=== PATIENT | female | born 2000 | race Caucasian/White ===

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

== ENCOUNTER 2022-02-12 13:55 | Emergency (ER) | payer BC, SELFPAY ==
--- NOTE | ~2022-02-12 | XR_ITS ---
EXAMINATION: XR knee LT min 4V DATE: 02/12/2022 14:27 INDICATION: Left knee injury. TECHNIQUE: 4 views of left knee were obtained. COMPARISON: None. FINDINGS: Bone alignment is normal. No fracture. Joint spaces are well maintained. There is no knee j oint effusion. IMPRESSION: 1. Normal left knee. Reviewed, dictated and finalized at location A. IMPRESSION: 1. Normal left knee.
[2022-02-12 14:05] VITALS: BP 119/65; PULSE 67; RESP 12; TEMP 35.7; O2SAT 100
--- NOTE | 2022-02-12 14:11 | ED.LOWEXIN ---
HPI - Extremity Injury (Lower) General Chief Complaint: Extremity Injury, Lower Stated Complaint: left knee injury Time Seen by Provider: 02/12/22 14:11 Source: patient Mode of arrival: ambulatory Limitations: no limitations History of Present Illness HPI Narrative: 21-year-old female presents with pain to left knee. 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 She states she then walked up several flights of stairs. When she got home she realized that left knee was bruised and swollen. States since then she is having pain when ambulatory. Reports pain while trying to sleep last night. States left knee is throbbing. She is ambulatory with steady gait [facility]. She took Tylenol prior to arrival. Patient would like x-ray to evaluate for fracture. All systems reviewed and negative except as noted above. Related Data Home Medications Medication Instructions Recorded Confirmed escitalopram oxalate 20 mg PO DAILY 11/24/21 02/12/22 trazodone 120 mg PO HS PRN Sleep 11/24/21 dextroamphetamine-amphetamine ER 10 mg PO DAILY 02/12/22 02/12/22 10 mg 24hr capsule,extend release Allergies Allergy/AdvReac Type Severity Reaction Status Date / Time No Known Allergies Allergy Verified 11/24/21 10:13 Review of Systems Review of Systems: CONSTITUTIONAL: Denies fever, chills, or sweats. EYES: Denies visual changes, redness, or discharge. ENT: Denies rhinorrhea, congestion, sore throat, or otalgia. CARDIOVASCULAR: Denies chest pain, palpitations, or edema. RESPIRATORY: Denies cough or dyspnea. GASTROINTESTINAL: Denies abdominal pain, nausea, vomiting, or diarrhea. GENITOURINARY: Denies dysuria or hematuria. SKIN: Denies rash or itching. MUSCULOSKELETAL: Denies back pain, joint pain, or myalgia. Reports bruising and pain to left knee. NEUROLOGIC: Denies headache, numbness, or weakness. PSYCHIATRIC: Denies anxiety or depression. All other systems reviewed are negative, except as documented in HPI. PMFSH Comments At time of signature, agree with nursing past medical, surgical, social and family history. There is no relevant family history pertinent to the presenting complaint. Exam Narrative: GENERAL: This is a well-nourished, well-developed patient, in no apparent distress. HEAD: normocephalic, atraumatic. EYES: PERRL. Sclera clear/white. Vision is grossly intact. EARS: External ears normal NOSE: External nose normal NECK: Neck supple, non-tender without lymphadenopathy, masses or thyromegaly. CARDIOVASCULAR: Regular rate and rhythm without murmurs, gallops, or rubs. RESPIRATORY: Clear to auscultation. Breath sounds equal bilaterally. No wheezes, rales, or rhonchi. SKIN: warm, Dry, intact with no suspicious lesions or rash, good texture and turgor. NEURO: awake, alert, and oriented to person, place and time. There were no obvious focal neurologic abnormalities. EXTREMITIES: Normal range of motion to left knee. There is an approximate 2 cm contusion to anterior aspect left knee with tenderness on palpation. To light Course Course Level of Care: Express Care Visit Vital Signs Vital signs: Vital Signs Temperature 35.7 C L 02/12/22 14:05 Pulse Rate 67 02/12/22 14:05 Respiratory Rate 12 02/12/22 14:05 Blood Pressure 119/65 02/12/22 14:05 Pulse Oximetry 100 02/12/22 14:05 Oxygen Delivery Room Air 02/12/22 14:05 Temperature 35.7 C L 02/12/22 14:05 Pulse Rate 67 02/12/22 14:05 Respiratory Rate 12 02/12/22 14:05 Blood Pressure 119/65 02/12/22 14:05 Pulse Oximetry 100 02/12/22 14:05 Oxygen Delivery Room Air 02/12/22 14:05 Reviewed MDM - Extremity Injury (Lower) MDM Narrative Medical decision making narrative: Patient is aware of diagnosis, understands and agrees to treatment plan. Anticipatory guidance given. Patient agrees to follow-up as directed and is aware of reasons to seek care at the emergency department. P
== END 2022-02-12 14:43 | disposition home or self-care (01) ==
PROVIDERS: Emergency Provider Nurse Practitioner Family
DX: S80.02XA Contusion of left knee, initial encounter (principal); W22.09XA Striking against other stationary object, initial encounter; F90.9 Attention-deficit hyperactivity disorder, unspecified type; F41.9 Anxiety disorder, unspecified; F32.A Depression, unspecified
CPT/HCPCS: 73564; 99213; G0463

== ENCOUNTER 2024-02-19 10:00 | Emergency (ER) | payer OTHER, SELFPAY ==
--- NOTE | 2024-02-19 10:02 | ED.URI ---
HPI - URI/Sore Throat General Chief Complaint: Upper Respiratory Infection Stated Complaint: Congestion/Sore Throat/Nausea Time Seen by Provider: 02/19/24 10:02 Source: patient Mode of arrival: ambulatory Limitations: no limitations History of Present Illness HPI Narrative: Misty is a 23-year-old female patient presenting to the clinic today with complaints of nasal congestion, headache, sore throat, and nausea that started on Tuesday. She reports no known fever. Related Data Home Medications Medication Instructions Recorded Confirmed escitalopram oxalate 20 mg PO DAILY 11/24/21 02/12/22 trazodone 120 mg PO HS PRN Sleep 11/24/21 dextroamphetamine-amphetamine ER 10 mg PO DAILY 02/12/22 02/12/22 10 mg 24hr capsule,extend release Allergies Allergy/AdvReac Type Severity Reaction Status Date / Time No Known Allergies Allergy Verified 11/24/21 10:13 Review of Systems Review of Systems: Pertinent positives per HPI. Patient denies any fever, chills, rash, visual changes, dizziness, cough, shortness of breath, chest pain, palpitations, nausea, vomiting, diarrhea, constipation, abdominal pain, or any urinary issues. PMFSH Comments At the time of my signature, I reviewed and agree with the nursing past medical, surgical, social, and family history. There is no relevant family history pertinent to the patient complaint. Exam Narrative: General: Well-developed, well nourished, in no apparent distress Head: Normocephalic, atraumatic Eyes: Pupils equally round and reactive to light bilaterally, EOM intact, sclera and conjunctive clear, no discharge, lids normal Ears: TMs intact and clear, ear canals clear, no drainage, grossly hearing normal. Nose: Nares patent, clear nasal discharge, no inflammation, no sinus tenderness. Mouth: Oropharynx without lesions or masses, good dentition, MMM. Neck: Supple, trachea midline, no enlargement of anterior or posterior cervical nodes, no thyroid masses or goiter palpable. Cardio: Regular rate and rhythm, s1 and s2 normal, no murmur appreciated. Resp: Clear to auscultation bilaterally anteriorly and posteriorly, no rhonchi, rales, wheezing or rubs Course Course Emergency Course: Portions of this record may have been created with voice recognition software. Level of Care: Express Care Visit Vital Signs Vital signs: Vital signs reviewed MDM - URI/Sore Throat MDM Narrative Medical decision making narrative: At the time of visit patient is resting comfortably on the exam table. Patient appears to be nontoxic. Labs: COVID, influenza, and strep test were performed and were negative in the clinic today. Plan: We will send strep for culture. I suspect patient has URI/pharyngitis/viral syndrome. Prescription for Zofran was sent to the pharmacy as she is reporting some nausea. Supportive measures were discussed with the patient and they voiced understanding discharge instructions and agrees to treatment plan. Return precautions reviewed Differential Diagnosis Differential diagnosis: Likely upper respiratory infection, otitis media, sinusitis, viral infection, bronchitis, influenza, pharyngitis and other (COVID) Discharge Plan Discharge Clinical Impression: Upper respiratory infection, Pharyngitis, Viral infection Patient Disposition: Home, Self-Care Condition: Stable Instructions: Antibiotic Form, Pharyngitis (ED), Viral Syndrome (ED), Cold Symptoms (ED) Additional Instructions: COVID, influenza, and strep test were all negative. We will send strep for culture if this comes back positive we will contact you in place you on antibiotics at that time. Take prescription medications only as prescribed-ondansetron Increase fluids and stay well hydrated Tylenol/motrin for pain/fever Flonase and OTC antihistamines as directed Vicks vapor rub to open sinuses Sinus rinses for congestion Cepacol spray, cough drops, throat lozenges, warm tea with ho
[2024-02-19 10:06] VITALS: BP 118/68; PULSE 77; RESP 16; TEMP 36.5; O2SAT 100
== END 2024-02-19 10:28 | disposition home or self-care (01) ==
PROVIDERS: Emergency Provider Nurse Practitioner Family
DX: J06.9 Acute upper respiratory infection, unspecified (principal); J02.9 Acute pharyngitis, unspecified; B34.9 Viral infection, unspecified; F41.9 Anxiety disorder, unspecified; F32.A Depression, unspecified; F90.9 Attention-deficit hyperactivity disorder, unspecified type
CPT/HCPCS: 87081; 99213; G0463

== ENCOUNTER 2025-06-10 15:05 | Outpatient (CLI) | payer OTHER, SELFPAY ==
--- NOTE | ~2025-06-10 | XR_ITS ---
EXAMINATION: XR chest 2V, 06/10/2025 15:37 CDT HISTORY: Shortness of breath COMPARISON: No comparisons available. Technique: 2 views obtained. Findings: The lungs are clear, no effusion. No pneumothorax. Heart is normal size. Mediastinal and hilar contours are within normal limits. Bony thorax no acute abnormality. Impression: No acute cardiopulmonary abnormality. Reviewed, dictated and finalized at location P. Impression: No acute cardiopulmonary abnormality.
[2025-06-10 15:34] LABS: Hematocrit 37.9 % (37.0-47.0); Hemoglobin 11.6 g/dL (12.0-15.0); Immature Granulocyte Percent A 0.4 % (0-0.5); Lymphocytes Absolute Auto 3.04 K/mm3 (0.9-3.2); Mean Corpuscular HGB Conc 30.6 g/dl (32-36); Mean Corpuscular Hemoglobin 19.9 pg (26-34); Mean Corpuscular Volume 65.1 fl (80-100); Nucleated Red Blood Cells Absolute Auto 0.000 K/mm3 (0.0-0.012); Nucleated Red Blood Cells Perc 0.0 % (0.0-0.2); Platelet Count Result 510 k/mm3 (150-375); Red Blood Count 5.82 M/mm3 (4.2-5.4); White Blood Count 11.3 K/mm3 (4.5-10.0)
[2025-06-10 16:07] LABS: Band Neutrophils Percent 0 % (0-6); Hypochromasia 1+; Microcytosis 1+ (NORMAL); Schistocytes None Seen
[2025-06-10 16:08] LABS: Anisocytosis 2+
[2025-06-10 16:35] LABS: Thyroid Stimulating Hormone Reflex 0.809 uIU/mL (0.465-4.68)
[2025-06-10 16:59] LABS: Alanine Aminotransferase 13 U/L (6-35); Albumin Level 4.4 g/dL (3.5-5.1); Alkaline Phosphatase 77 U/L (38-126); Anion Gap 10 mmol/L (4-12); Aspartate Amino Transferase 23 U/L (14-36); Bilirubin,Total 0.3 mg/dL (0.2-1.3); Blood Urea Nitrogen 11 mg/dL (7-17); Calcium 9.2 mg/dL (8.4-10.2); Carbon Dioxide 23 mmol/L (22-30); Chloride 104 mmol/L (98-107); Estimated Glomerular Filt Rate > 60; Glucose 94 mg/dL (65-110); Potassium 3.9 mmol/L (3.4-5.0); Sodium 137 mmol/L (137-145); Total Protein 8.1 g/dL (6.3-8.2)
== END 2025-06-10 15:06 | disposition home or self-care (01) ==
LOC: ANHLAB 15:09
PROVIDERS: Visit Provider Nurse Practitioner
DX: R06.02 Shortness of breath (principal)
CPT/HCPCS: 36415; 71046; 80053; 84443; 85025; 85380